=== PATIENT | male | born 1945 | race Caucasian/White ===

== ENCOUNTER → 2016-06-04 | Outpatient (CLI) | payer MEDICARE ==
[~2016-06-04] MED LIST: CIPR500T89 PO; DOCU10CA PO; PERC5TAB6 PO
== END ==
LOC: M SMT 09:54
PROVIDERS: ATTEND Urology
DX: C61 Malignant neoplasm of prostate (principal)

== ENCOUNTER → 2016-09-10 | Outpatient (CLI) | payer MEDICARE | LOC: M SMT 10:41 | PROVIDERS: ATTEND Urology | DX: C61 Malignant neoplasm of prostate (principal) ==

== ENCOUNTER 2017-07-18 15:47 | Inpatient (IN) | payer MEDICARE ==
[2017-07-18 18:02] LABS: BASO % 0.2 % (0.0-1.0); EOS % 0.4 % (0.0-3.0); HEMATOCRIT 40.5 % (42.0-52.0); HEMOGLOBIN 13.5 g/dl (14.0-18.0); IMMATURE GRANULOCYTE % 0.2 % (0-3.0); LYMPH # 1.1 10^3/uL (1.5-4.5); LYMPH % 22.9 % (24.0-44.0); MEAN CORPUSCULAR HEMOGLOBIN 30.8 pg (27.0-33.0); MEAN CORPUSCULAR HGB CONC 33.3 g/dl (32.0-36.5); MEAN CORPUSCULAR VOLUME 92.5 fl (80.0-96.0); MONO # 0.6 10^3/uL (0.0-0.8); MONO % 11.4 % (0.0-5.0); NEUTROPHILS # 3.1 10^3/uL (1.8-7.7); NEUTROPHILS % 64.9 % (36.0-66.0); PLATELET COUNT, AUTOMATED 130 10^3/uL (150-450); RED BLOOD COUNT 4.38 10^6/uL (4.30-6.10); RED CELL DISTRIBUTION WIDTH 13.4 % (11.5-14.5); WHITE BLOOD COUNT 4.8 10^3/uL (4.0-10.0)
[2017-07-18 18:12] LABS: INR 0.97
[2017-07-18 18:25] LABS: ANION GAP 9 MEQ/L (8-16); BLOOD UREA NITROGEN 17 MG/DL (7-18); CALCIUM LEVEL 8.4 MG/DL (8.8-10.2); CARBON DIOXIDE LEVEL 30 MEQ/L (21-32); CHLORIDE LEVEL 100 MEQ/L (98-107); CPK CREATINE PHOSPHOKINASE 472 U/L (39-308); CREATININE FOR GFR 0.74 MG/DL (0.70-1.30); GLOMERULAR FILTRATION RATE > 60.0 (>42); GLUCOSE, FASTING 112 MG/DL (70-100); POTASSIUM SERUM 3.7 MEQ/L (3.5-5.1); SODIUM LEVEL 139 MEQ/L (136-145); TROPONIN I < 0.02 NG/ML (< 0.10)
[2017-07-18 18:26] LABS: CK-MB VALUE MASS 6.3 NG/ML (0.0-3.6); MB/CK RELATIVE INDEX 1.33 (< OR =4); NT-PRO BNP 83 PG/ML (<125)
[2017-07-18] MEDS ORDERED: ISOVUE-370 76% 100ML VIAL (Q9967) As Ordered (20:27)
[2017-07-18] MEDS: CEFTRIAXONE SOD 1 GM in APPROPRIATE DILUENT 1 EA IV (21:30)
[2017-07-18] MEDS: AZITHROMYCIN INJ 500 MG, VIAL MATE ADAPTER 1 EACH in D5W 250 ML IV (22:38)
[2017-07-18] MEDS: OSELTAMIVIR PHOSPHATE 75 MG CAP (TAMIFLU) PO (23:41)
[2017-07-19 01:31] LABS: CK-MB VALUE MASS 5.1 NG/ML (0.0-3.6); CPK CREATINE PHOSPHOKINASE 437 U/L (39-308); MB/CK RELATIVE INDEX 1.16 (< OR =4); TROPONIN I < 0.02 NG/ML (< 0.10)
[2017-07-19] MEDS ORDERED: ALBUTEROL SULFATE 2.5 MG/0.5 ML INH NEB SOLN INH (06:45)
[2017-07-19 06:57] LABS: HEMATOCRIT 42.4 % (42.0-52.0); HEMOGLOBIN 14.1 g/dl (14.0-18.0); MEAN CORPUSCULAR HEMOGLOBIN 30.7 pg (27.0-33.0); MEAN CORPUSCULAR HGB CONC 33.3 g/dl (32.0-36.5); MEAN CORPUSCULAR VOLUME 92.4 fl (80.0-96.0); PLATELET COUNT, AUTOMATED 144 10^3/uL (150-450); RED BLOOD COUNT 4.59 10^6/uL (4.30-6.10); RED CELL DISTRIBUTION WIDTH 13.4 % (11.5-14.5); WHITE BLOOD COUNT 4.3 10^3/uL (4.0-10.0)
[2017-07-19 07:21] LABS: ANION GAP 7 MEQ/L (8-16); BLOOD UREA NITROGEN 13 MG/DL (7-18); CALCIUM LEVEL 8.5 MG/DL (8.8-10.2); CARBON DIOXIDE LEVEL 31 MEQ/L (21-32); CHLORIDE LEVEL 102 MEQ/L (98-107); CK-MB VALUE MASS 4.7 NG/ML (0.0-3.6); CPK CREATINE PHOSPHOKINASE 380 U/L (39-308); CREATININE FOR GFR 0.68 MG/DL (0.70-1.30); GLOMERULAR FILTRATION RATE > 60.0 (>42); GLUCOSE, FASTING 114 MG/DL (70-100); MAGNESIUM LEVEL 2.5 MG/DL (1.8-2.4); MB/CK RELATIVE INDEX 1.23 (< OR =4); POTASSIUM SERUM 3.8 MEQ/L (3.5-5.1); SODIUM LEVEL 140 MEQ/L (136-145); TROPONIN I < 0.02 NG/ML (< 0.10)
[2017-07-19] MEDS: ALBUTEROL SULFATE 2.5 MG/0.5 ML INH NEB SOLN INH ×4 (07:59→21:56)
[2017-07-19] MEDS: OSELTAMIVIR PHOSPHATE 75 MG CAP (TAMIFLU) PO ×2 (09:08→21:01)
[2017-07-19] MEDS: ENOXAPARIN 40 MG/0.4 ML SYRINGE (J1650) SC (09:08)
[2017-07-19] MEDS: CEFTRIAXONE SOD 1 GM in APPROPRIATE DILUENT 1 EA IV (22:52)
[2017-07-19] MEDS: AZITHROMYCIN INJ 500 MG, VIAL MATE ADAPTER 1 EACH in D5W 250 ML IV (23:07)
[2017-07-20 06:35] LABS: HEMATOCRIT 40.4 % (42.0-52.0); HEMOGLOBIN 13.5 g/dl (14.0-18.0); MEAN CORPUSCULAR HGB CONC 33.4 g/dl (32.0-36.5); MEAN CORPUSCULAR VOLUME 92.9 fl (80.0-96.0); PLATELET COUNT, AUTOMATED 151 10^3/uL (150-450); RED BLOOD COUNT 4.35 10^6/uL (4.30-6.10); RED CELL DISTRIBUTION WIDTH 13.5 % (11.5-14.5); WHITE BLOOD COUNT 3.6 10^3/uL (4.0-10.0)
[2017-07-20 07:07] LABS: ANION GAP 7 MEQ/L (8-16); BLOOD UREA NITROGEN 12 MG/DL (7-18); CALCIUM LEVEL 8.4 MG/DL (8.8-10.2); CARBON DIOXIDE LEVEL 30 MEQ/L (21-32); CHLORIDE LEVEL 106 MEQ/L (98-107); CREATININE FOR GFR 0.68 MG/DL (0.70-1.30); GLOMERULAR FILTRATION RATE > 60.0 (>42); GLUCOSE, FASTING 120 MG/DL (70-100); MAGNESIUM LEVEL 2.5 MG/DL (1.8-2.4); POTASSIUM SERUM 3.8 MEQ/L (3.5-5.1); SODIUM LEVEL 143 MEQ/L (136-145)
[2017-07-20] MEDS: ENOXAPARIN 40 MG/0.4 ML SYRINGE (J1650) SC (09:00)
[2017-07-20] MEDS: OSELTAMIVIR PHOSPHATE 75 MG CAP (TAMIFLU) PO (10:00)
== END 2017-07-20 14:00 | disposition home or self-care (01) | DRG 195 ==
LOC: M ED INP 07-19 00:11 → M MS4PR 07-20 00:06 → M ED 15:47
DX: J10.08 Influenza due to other identified influenza virus with other specified pneumonia (principal); M19.011 Primary osteoarthritis, right shoulder; Z85.46 Personal history of malignant neoplasm of prostate; R91.8 Other nonspecific abnormal finding of lung field

== ENCOUNTER → 2017-07-18 | Outpatient (CLI) | payer MEDICARE | LOC: M LRY 14:02 | DX: R79.81 Abnormal blood-gas level (principal); S49.91XA Unspecified injury of right shoulder and upper arm, initial encounter; W19.XXXA Unspecified fall, initial encounter | CPT/HCPCS: 71046 ==

== ENCOUNTER 2025-04-24 05:06 | Inpatient (IN) | payer MEDICARE ==
[~2025-04-24] VITALS: Ht 185.4 cm; Wt 78.1 kg
[2025-04-24] VITALS (8 sets, daily range): BP systolic 136–169; BP diastolic 65–75; TEMP 97.5–98.8; O2SAT 91–96
[~2025-04-24 05:06] MED LIST changes: +ALBU6.7H6 INH; +CEFD1CAP9 PO; +CIPR-249 PO; -CIPR500T89 PO; +OSEL75CA2 PO; +PERC5TAB12 PO; -PERC5TAB6 PO
[2025-04-24] MEDS ORDERED: ISOVUE-370 76% 100 ML VIAL As Ordered ONE (05:11)
[2025-04-24] MEDS ORDERED: hydrALAZINE 20 MG/ML 1 ML VIAL IV STA (05:23)
[2025-04-24 05:44] LABS: BASO # 0.0 10^3/uL (0.0-0.2); BASO % 0.4 % (0.0-1.0); EOS # 0.1 10^3/uL (0.0-0.5); EOS % 3.1 % (0.0-3.0); LYMPH # 1.5 10^3/uL (1.5-5.0); LYMPH % 34.2 % (24.0-44.0); MONO # 0.5 10^3/uL (0.0-0.8); MONO % 10.6 % (2.0-8.0); NEUTROPHILS # 2.3 10^3/uL (1.5-8.5); NEUTROPHILS % 51.5 % (36.0-66.0); PLATELET COUNT, AUTOMATED 206 10^3/uL (150-450)
[2025-04-24 06:05] LABS: INR 0.87
[2025-04-24 06:17] LABS: CALCIUM LEVEL 8.6 MG/DL (8.3-10.6); CARBON DIOXIDE LEVEL 27 MMOL/L (20-31); CHLORIDE LEVEL 107 MMOL/L (98-107); CK-MB VALUE MASS 7.8 NG/ML (<3.6); CPK CREATINE PHOSPHOKINASE 237 U/L (46-171); CREATININE FOR GFR 0.69 MG/DL (0.70-1.30); GLOMERULAR FILTRATION RATE > 90.0 (>35); MB/CK RELATIVE INDEX 3.29 (< OR =4); POTASSIUM SERUM 5.2 MMOL/L (3.5-5.1); SODIUM LEVEL 144 MMOL/L (136-145)
[2025-04-24] MEDS: ASPIRIN 81 MG CHEWABLE TABLET PO ONE (06:17)
[2025-04-24] MEDS: SIMVASTATIN 40 MG TAB PO ONE (06:17)
[2025-04-24] MEDS: CLOPIDOGREL 300 MG TAB PO STA (06:41)
[2025-04-24 07:54] LABS: CHOLESTEROL LEVEL 169 MG/DL (<200); CHOLESTEROL RISK RATIO 3.08 (<5); LDL CHOLESTEROL 97.8 MG/DL (<100); NON-HDL-C 114.2 MG/DL; TRIGLYCERIDES LEVEL 82 MG/DL (<150)
[2025-04-24] MEDS ORDERED: HOME MED LIST COMPLETE! XX SCH (07:55)
[2025-04-24 09:17] LABS: ESTIMATED AVERAGE GLUCOSE 117.0 MG/DL (60-110)
[2025-04-24 10:15] LABS: ALT/SGPT 22.0 U/L (7.0-40); AST/SGOT 26.0 U/L (<34)
[2025-04-24 11:52] LABS: FREE T4 0.96 NG/DL (0.89-1.76)
[2025-04-24 12:46] LABS: CALCIUM LEVEL 8.7 MG/DL (8.3-10.6); CARBON DIOXIDE LEVEL 28 MMOL/L (20-31); CHLORIDE LEVEL 105 MMOL/L (98-107); CREATININE FOR GFR 0.63 MG/DL (0.70-1.30); GLOMERULAR FILTRATION RATE > 90.0 (>35); MAGNESIUM LEVEL 1.9 MG/DL (1.8-2.4); POTASSIUM SERUM 4.0 MMOL/L (3.5-5.1); SODIUM LEVEL 144 MMOL/L (136-145)
[2025-04-25] VITALS (29 sets, daily range): BP systolic 119–179; BP diastolic 71–80; TEMP 97.7–99; O2SAT 88–95
[2025-04-25 07:20] LABS: PLATELET COUNT, AUTOMATED 202 10^3/uL (150-450)
[2025-04-25 07:45] LABS: CALCIUM LEVEL 8.8 MG/DL (8.3-10.6); CARBON DIOXIDE LEVEL 28 MMOL/L (20-31); CHLORIDE LEVEL 105 MMOL/L (98-107); CREATININE FOR GFR 0.68 MG/DL (0.70-1.30); GLOMERULAR FILTRATION RATE > 90.0 (>35); MAGNESIUM LEVEL 1.9 MG/DL (1.8-2.4); POTASSIUM SERUM 4.2 MMOL/L (3.5-5.1); SODIUM LEVEL 142 MMOL/L (136-145)
[2025-04-25 07:51] LABS: VITAMIN B12 LEVEL 432 PG/ML (211-911)
[2025-04-25] MEDS: ATORVASTATIN 20 MG TAB PO SCH (08:31)
[2025-04-25] MEDS: CLOPIDOGREL 75 MG TAB PO SCH (08:31)
[2025-04-25] MEDS: ENOXAPARIN 40 MG/0.4 ML SYRINGE (J1650 PER 10MG) SC SCH (08:32)
[2025-04-25] MEDS: ASPIRIN 81 MG CHEWABLE TABLET PO SCH (08:32)
[2025-04-25] MEDS: PNEUMOC 21-VAL CONJ-DIP CRM/PF 0.5 ML SYRINGE IM.IMMUN ONE (10:13)
[2025-04-25] MEDS: FOLIC ACID 1 MG TAB PO SCH (12:33)
[2025-04-25] MEDS: THIAMINE 100 MG TAB PO SCH (12:33)
[2025-04-25] MEDS: MULTIVITAMINS/MINERALS THERAP 1 TAB PO SCH (12:33)
[2025-04-26] VITALS (23 sets, daily range): BP systolic 118–166; BP diastolic 58–76; TEMP 97.4–98.4; O2SAT 90–94
[2025-04-26 04:13] LABS: APPEARANCE, URINE CLEAR (CLEAR); BACTERIA, URINE AUTO NEGATIVE (NEGATIVE); BILIRUBIN, URINE AUTO NEGATIVE (NEGATIVE); BLOOD, URINE BLOOD NEGATIVE (NEGATIVE); GLUCOSE, URINE (UA) AUTO NEGATIVE (NEGATIVE); KETONE, URINE AUTO NEGATIVE (NEGATIVE); LEUKOCYTE ESTERASE, URINE AUTO NEGATIVE (NEGATIVE); MUCUS, URINE SMALL (NEGATIVE); NITRITE, URINE AUTO NEGATIVE (NEGATIVE); PROTEIN, URINE AUTO NEGATIVE (NEGATIVE); RBC, URINE AUTO 1 /HPF (0-3); SPECIFIC GRAVITY URINE AUTO 1.012 (1.002-1.035); SQUAMOUS EPITHELIAL CELL UR AU 0 /HPF (0-6); UROBILINOGEN, URINE AUTO 0.2 mg/dL (0.0-2.0); WBC, URINE AUTO 0 /HPF (0-3)
[2025-04-26 05:51] LABS: PLATELET COUNT, AUTOMATED 203 10^3/uL (150-450)
[2025-04-26 06:16] LABS: CALCIUM LEVEL 9.1 MG/DL (8.3-10.6); CARBON DIOXIDE LEVEL 28 MMOL/L (20-31); CHLORIDE LEVEL 105 MMOL/L (98-107); CREATININE FOR GFR 0.75 MG/DL (0.70-1.30); GLOMERULAR FILTRATION RATE > 90.0 (>35); MAGNESIUM LEVEL 1.8 MG/DL (1.8-2.4); POTASSIUM SERUM 4.2 MMOL/L (3.5-5.1); SODIUM LEVEL 144 MMOL/L (136-145)
[2025-04-26] MEDS: MIRALAX *UNIT DOSE* 17 GM PACKET PO SCH (12:04)
[2025-04-26] MEDS: SENNA 8.6 MG TAB PO SCH (12:05)
[2025-04-26] MEDS: amLODIPine 5 MG TAB PO SCH (16:56)
[2025-04-27 03:58] VITALS: BP 146/70; TEMP 98; O2SAT 94
[2025-04-27 04:34] LABS: PLATELET COUNT, AUTOMATED 192 10^3/uL (150-450)
[2025-04-27 05:01] LABS: CALCIUM LEVEL 8.5 MG/DL (8.3-10.6); CARBON DIOXIDE LEVEL 27 MMOL/L (20-31); CHLORIDE LEVEL 107 MMOL/L (98-107); CREATININE FOR GFR 0.76 MG/DL (0.70-1.30); GLOMERULAR FILTRATION RATE > 90.0 (>35); MAGNESIUM LEVEL 1.8 MG/DL (1.8-2.4); POTASSIUM SERUM 4.3 MMOL/L (3.5-5.1); SODIUM LEVEL 146 MMOL/L (136-145)
[2025-04-27 07:31] VITALS: BP 150/76; TEMP 99; O2SAT 94
[2025-04-27 16:02] VITALS: BP 155/67; TEMP 98.2; O2SAT 94
[2025-04-27 19:35] VITALS: BP 117/70; TEMP 97.3; O2SAT 96
[2025-04-28 03:49] VITALS: BP 106/56; TEMP 98.2; O2SAT 93
[2025-04-28 06:14] LABS: CALCIUM LEVEL 8.5 MG/DL (8.3-10.6); CARBON DIOXIDE LEVEL 26 MMOL/L (20-31); CHLORIDE LEVEL 108 MMOL/L (98-107); CREATININE FOR GFR 0.78 MG/DL (0.70-1.30); GLOMERULAR FILTRATION RATE > 90.0 (>35); MAGNESIUM LEVEL 1.9 MG/DL (1.8-2.4); POTASSIUM SERUM 4.0 MMOL/L (3.5-5.1); SODIUM LEVEL 146 MMOL/L (136-145)
[2025-04-28 07:52] VITALS: BP 138/62; TEMP 97.4; O2SAT 92
[2025-04-28 15:59] VITALS: BP 121/71; TEMP 98.2; O2SAT 65
[2025-04-29 05:15] VITALS: BP 167/72; TEMP 98.7; O2SAT 94
[2025-04-30 04:55] VITALS: BP 145/63; TEMP 99.5; O2SAT 95
[2025-04-30 08:00] VITALS: BP 127/61; TEMP 98.5; O2SAT 96
[2025-04-30 09:00] VITALS: BP 127/61; TEMP 98.5; O2SAT 96
[2025-05-01 05:11] VITALS: BP 133/62; TEMP 98.4; O2SAT 94
[2025-05-02 06:35] VITALS: BP 102/55; TEMP 98.5; O2SAT 92
[2025-05-02 09:00] VITALS: BP 127/68
[2025-05-03 05:18] VITALS: BP 152/64; TEMP 98.6; O2SAT 94
[2025-05-03 09:00] VITALS: BP 133/77
[2025-05-04 05:45] VITALS: BP 124/60; TEMP 99.3; O2SAT 97
[2025-05-04 08:38] VITALS: BP 123/60; TEMP 98.6; O2SAT 95
[2025-05-05 06:05] VITALS: BP 141/63; TEMP 98.7; O2SAT 94
[2025-05-05] MEDS ORDERED: AMLO1TAB24 PO (07:04)
[2025-05-05] MEDS ORDERED: ATOR1TAB21 PO (07:05)
[2025-05-05] MEDS ORDERED: ASPI81CH8 PO (07:05)
[2025-05-05] MEDS ORDERED: CLOP75TA2 PO (07:06)
[2025-05-05 08:34] VITALS: BP 128/60
== END 2025-05-05 08:55 | DRG 65 ==
LOC: M ED 05:06 → M ED INP 07:00 → M PCU 17:34 → M MS5PR 04-28 17:01
PROVIDERS: ADMIT Internal Medicine; ATTEND Student in an Organized Health Care Education/Training Program
DX: I63.531 Cerebral infarction due to unspecified occlusion or stenosis of right posterior cerebral artery (principal); G81.94 Hemiplegia, unspecified affecting left nondominant side; I51.0 Cardiac septal defect, acquired; I10 Essential (primary) hypertension; I63.529 Cerebral infarction due to unspecified occlusion or stenosis of unspecified anterior cerebral artery; Z85.46 Personal history of malignant neoplasm of prostate; F10.20 Alcohol dependence, uncomplicated; E02 Subclinical iodine-deficiency hypothyroidism; R31.9 Hematuria, unspecified

== ENCOUNTER → 2025-05-05 | Outpatient (CLI) | payer MEDICARE ==
[~2025-05-05] MED LIST changes: +AMLO1TAB24 PO; +ASPI81CH8 PO; +ATOR1TAB21 PO; +CLOP75TA2 PO
== END ==
LOC: M EKG 10:05
PROVIDERS: ATTEND Internal Medicine
DX: Z86.73 Personal history of transient ischemic attack (TIA), and cerebral infarction without residual deficits (principal)

== ENCOUNTER → 2025-05-09 | Outpatient (REF) | payer MEDICARE, OTHER ==
[2025-05-09 14:29] LABS: PLATELET COUNT, AUTOMATED 188 10^3/uL (150-450)
[2025-05-09 15:12] LABS: CALCIUM LEVEL 9.1 MG/DL (8.3-10.6); CARBON DIOXIDE LEVEL 26.0 MMOL/L (20-31); CHLORIDE LEVEL 105.0 MMOL/L (98-107); CREATININE FOR GFR 0.82 MG/DL (0.70-1.30); GLOMERULAR FILTRATION RATE 88.8 (>35); POTASSIUM SERUM 4.1 MMOL/L (3.5-5.1); SODIUM LEVEL 141.0 MMOL/L (136-145)
== END ==
LOC: SKLAB2 07:00
PROVIDERS: ATTEND Family Medicine
DX: I69.354 Hemiplegia and hemiparesis following cerebral infarction affecting left non-dominant side (principal)